=== PATIENT | male | born 1990 | race Caucasian/White ===

== ENCOUNTER 2018-06-29 17:57 | Emergency (ER) | payer OTHER ==
[~2018-06-29] VITALS: Ht 182.9 cm; Wt 84.1 kg
--- NOTE | 2018-06-29 18:55 | REP ---
Clinical: Trauma. Technique: AP, lateral, bilateral oblique views of the left ankle. Findings: Lateral swelling consist with inversion injury. No acute fracture or dislocation. Ankle mortise intact. Impression: No acute fracture or dislocation. Electronically Signed by Jeison Licona MD 06/29/2018 06:47 P
--- NOTE | 2018-06-29 18:56 | REP ---
Nickel: Trauma. Technique: AP and lateral views of the left tibia / fibula. Findings: No acute fracture dislocation. Lateral ankle swelling. Skeletal structures, joint spaces, and surrounding soft tissues are normal. No subcutaneous emphysema or radiodense foreign body. Impression: No acute fracture dislocation. Lateral ankle swelling. Electronically Signed by Jeison Licona MD 06/29/2018 06:48 P
[2018-06-29] MEDS ORDERED: KETOROLAC TROMETHAMINE 10 MG TAB PO ONE (20:30)
[2018-06-29] MEDS ORDERED: DICL75TA PO (20:31)
[2018-06-29 21:05] VITALS: BP 128/84
== END 2018-06-29 21:13 | disposition home or self-care (01) ==
LOC: M ED 17:57
DX: S93.402A Sprain of unspecified ligament of left ankle, initial encounter (principal); W01.0XXA Fall on same level from slipping, tripping and stumbling without subsequent striking against object, initial encounter; Y92.89 Other specified places as the place of occurrence of the external cause; Y99.0 Civilian activity done for income or pay; Z77.098 Contact with and (suspected) exposure to other hazardous, chiefly nonmedicinal, chemicals